=== PATIENT | male | born 1950 | race Caucasian/White ===

== ENCOUNTER → 2016-09-12 | Outpatient (CLI) | payer MEDICARE, OTHER ==
[~2016-09-12] MED LIST: IOHEXOL 350 MG/ML 100ml INJECTION ONE; NORMAL SALINE 100 ML ONE; SALINE FLUSH 10ml SYRINGE ONE
--- NOTE | 2016-09-12 09:00 | DI ---
Indication: ITS.REASON: R09.89 Other specified symptoms and signs involving the circulato PROCEDURE: CTA ABDOMEN and pelvis W/WO CONTRAST: And CTA runoff bilateral lower extremities with and without contrast: Encounter: Initial Comparison: CT abdomen and pelvis dated November 17, 2014 Technique: CT angiography of the abdomen and pelvis and both lower extremities was performed with runoffs before and after contrast. Coronal and sagittal MIP reconstructed images were created and reviewed. Three-dimensional surface shaded volume rendered imaging of the arterial system was also created by the technologist on a dedicated workstation under the direction of the interpreting radiologist and reviewed. Contrast: Omnipaque 350 100mL Automated Exposure Control and Iterative Reconstruction dose reducing techniques were utilized. Findings: CTA of the abdomen with and without contrast: The lung bases are clear. The arterial phase liver, gallbladder, spleen, pancreas and adrenal glands are within normal limits. Small low-attenuation foci in both kidneys, statistically benign. Hepatic arterial anatomy is conventional. No evidence of aortic aneurysm or dissection. The celiac and SMA origins are widely patent. Two left and two right renal arteries present. There is moderate stenosis at the origin of the dominant superior right renal artery. No other areas of renal arterial stenosis seen. The ALEJANDRINA is patent. The common iliac arteries are patent with mild plaque present. CT angiogram of the pelvis with and without contrast: Mild stenosis at the right external iliac artery origin with noncalcified plaque with heavy plaque seen in the midportion of the artery causing mild to moderate areas of stenosis. There is also plaque at the origin of the right internal iliac artery causing mild to moderate stenosis. Noncalcified plaque causing a focal moderate stenosis in the midportion of the left external iliac artery. Additional mild stenosis seen more distally due to calcified and noncalcified plaque. Left internal iliac artery shows mild to moderate stenosis throughout its course. The bladder is unremarkable. Prostate is surgically absent. No free fluid. The visualized loops of small and large bowel in the pelvis are unremarkable. CTA runoff right lower extremity: Plaque in the right common femoral/SFA junction causing moderate stenosis. Scattered plaque throughout the course of the SFA causing multifocal mild stenoses without occlusion. Heavy plaque in the transition to the popliteal with moderate stenosis but no occlusion. The tibioperoneal trunk is patent. The right anterior tibial artery is occluded just beyond its origin. The posterior tibial and peroneal arteries appear patent through the ankle joint. CTA runoff left lower extremity: Plaque in the left common femoral artery causing severe stenosis in the proximal aspect. Heavy calcified plaque present. The SFA has scattered plaque causing only mild narrowing proximally and mild to moderate narrowing near the origin of the popliteal. The popliteal artery shows multifocal moderate stenoses to the calcified plaque but no occlusion. The tibioperoneal trunk is patent. The left anterior tibial artery is completely occluded in the proximal aspect. The posterior tibial and peroneal arteries appear patent through the ankle joint. Impression: 1. CTA abdomen with and without contrast: No acute abnormality. 2. CTA pelvis with and without contrast: Multifocal areas of stenoses in the iliac arteries as described above. 3. CTA runoff right lower extremity: Two vessel runoff via the posterior tibial and peroneal. 4. CTA runoff left lower extremity: Two vessel runoff via the posterior tibial and peroneal. .
== END ==
LOC: IMA 07:21
PROVIDERS: ATTEND Family Medicine
DX: R09.89 Other specified symptoms and signs involving the circulatory and respiratory systems (principal); I70.203 Unspecified atherosclerosis of native arteries of extremities, bilateral legs
CPT/HCPCS: 73706; 74175; J7050; Q9967